=== PATIENT | female | born 2000 | race Two or more races ===

== ENCOUNTER 2021-01-13 23:34 | Emergency (ER) | payer OTHER ==
[~2021-01-13] VITALS: Ht 162.6 cm; Wt 70.0 kg
[2021-01-13 23:35] VITALS: BP 134/88
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
[2021-01-13] MEDS ORDERED: PLEASE ENTER ALLERGIES MC SCH (23:45)
[2021-01-13] MEDS ORDERED: ONDANSETRON ODT 4 MG ONE (23:54)
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
[2021-01-14] MEDS ORDERED: ONDANSETRON ODT 4 MG PO ONE
--- NOTE | 2021-01-14 00:22 | NUR ---
PT AMBULATED TO DISCHARGE DESK, AFTER RECEIVING F/U AND D/C INSTRUCTIONS AND PRESCRIPTIONS AND PT V/U. PT KNOWS WHICH HOSPITAL SHE IS AT AND STATED, "[facility]". PT KNOWS HER NAME AND THE DATE WELL. PT SAYS SHE JUST WANTS TO GO TO SLEEP AT HOME. D/C PAPERWORK GIVEN AND PT EXITED ER, WITH HER TWO FRIENDS WHO'VE ARRIVED TO TAKE THE PT HOME.
== END 2021-01-14 00:24 | disposition home or self-care (01) ==
LOC: ED 23:35
DX: F10.120 Alcohol abuse with intoxication, uncomplicated (principal); R11.0 Nausea
CPT/HCPCS: 99283; Q0162